=== PATIENT | female | born 1955 | race Caucasian/White ===

== ENCOUNTER → 2017-01-31 16:05 | Outpatient (CLI) | payer BC | END | disposition home or self-care (01) | LOC: D.CT 15:30 | DX: J32.9 Chronic sinusitis, unspecified (principal); R04.2 Hemoptysis ==

== ENCOUNTER → 2017-02-11 16:52 | Outpatient (CLI) | payer BC | END | disposition home or self-care (01) | LOC: D.US 02-10 09:00 | DX: N28.1 Cyst of kidney, acquired (principal) ==

== ENCOUNTER → 2018-03-20 09:28 | Outpatient (CLI) | payer BC | END | disposition home or self-care (01) | LOC: D.CT 09:28 | DX: R91.1 Solitary pulmonary nodule (principal) ==